=== PATIENT | male | born 1930 | race Caucasian/White ===

== ENCOUNTER 2020-09-29 19:44 | Inpatient (IN) | payer OTHER ==
[~2020-09-29] VITALS: Ht 162.6 cm; Wt 73.5 kg
[2020-09-29 19:45] VITALS: BP 54/31
[2020-09-29 20:12] LABS: ABSOLUTE NEUTROPHILS 2.9 thou/uL (1.4-8.2); BASOPHILS 0.9 % (0.0-2.0); EOSINOPHILS 2.8 % (0.0-3.0); HEMATOCRIT 32.3 % (42.0-52.0); HEMOGLOBIN 10.8 gm/dL (14.0-18.0); LYMPHOCYTES 17.1 % (24.0-44.0); MCH 30.7 pg (26.0-34.0); MCHC 33.5 g/dL (28.0-37.0); MCV 91.7 fL (80.0-100.0); MONOCYTES 8.9 % (1.0-8.0); PLATELET COUNT 250 thou/uL (150-400); POLYS 70.3 % (36.0-66.0); RBC 3.52 mil/uL (4.50-6.00); RDW 16.4 % (10.5-14.5); WBC 4.1 thou/uL (4.0-11.0)
[2020-09-29 20:13] LABS: CALCIUM 8.2 mg/dL (8.5-10.1); CREATININE 1.5 mg/dL (0.7-1.3); POTASSIUM 3.8 mmol/L (3.5-5.1)
[2020-09-29 20:28] LABS: ALBUMIN 2.7 g/dL (3.4-5.0); DIRECT BILIRUBIN 0.1 mg/dL (<0.1-0.2); TOTAL BILIRUBIN 0.5 mg/dL (0.2-1.0); TOTAL PROTEIN 5.8 g/dL (6.4-8.2)
[2020-09-29 21:53] LABS: URINE BILIRUBIN NEGATIVE (Negative); URINE BLOOD NEGATIVE (Negative); URINE CLARITY CLEAR; URINE COLOR YELLOW; URINE GLUCOSE-RANDOM* NEGATIVE (Negative); URINE KETONES NEGATIVE (Negative); URINE LEUKOCYTES-REFLEX NEGATIVE (Negative); URINE NITRITE-REFLEX NEGATIVE (Negative); URINE PROTEIN (DIPSTICK) NEGATIVE (Negative); URINE SPECIFIC GRAVITY 1.025 (1.005-1.035); URINE UROBILINOGEN 0.2 E.U./dl (0.2-1.0)
[2020-09-29 22:52] VITALS: BP 105/76
[2020-09-29 22:53] VITALS: BP 140/75
[2020-09-29 23:36] LABS: APTT 27.9 Seconds (24.5-32.8); INR 1.2; PROTIME 12.3 Seconds (9.3-11.4)
[2020-09-30] VITALS (49 sets, daily range): BP systolic 108–151; BP diastolic 52–101
[2020-09-30 02:04] LABS: HEMATOCRIT 37.4 % (42.0-52.0); HEMOGLOBIN 12.2 gm/dL (14.0-18.0)
[2020-09-30] MEDS ORDERED: ASA81BEC PO (06:23)
[2020-09-30] MEDS ORDERED: HYDROCHLOROTHIA25 M2 PO (06:24)
[2020-09-30] MEDS ORDERED: RABEPRAZOLE SOD20 MG PO (06:24)
[2020-09-30] MEDS ORDERED: VITAMIN C1000 MG PO (06:24)
[2020-09-30] MEDS ORDERED: NAMENDA 10 MG T10 MG PO (06:25)
[2020-09-30] MEDS ORDERED: CELEXA 20 MG TA20 MG PO (06:25)
[2020-09-30] MEDS ORDERED: LEVO-T50 MCG PO (06:25)
[2020-09-30] MEDS ORDERED: CENTRUM SILVER1 EAC7 PO (06:26)
[2020-09-30] MEDS ORDERED: MIRALAX119 GM PO (06:26)
[2020-09-30] MEDS ORDERED: FLOMAX0.4 MG PO (06:27)
[2020-09-30] MEDS ORDERED: AVODART0.5 MG PO (06:30)
[2020-09-30] MEDS ORDERED: PRINIVIL20 M1 PO (06:30)
[2020-09-30] MEDS ORDERED: LIPITOR40 MG PO (06:31)
[2020-09-30] MEDS ORDERED: SEROQUEL 25 MG25 M1 PO (06:32)
[2020-09-30] MEDS ORDERED: LORAZEPAM 0.50.5 MG PO ×2 (06:32→06:33)
--- NOTE | 2020-09-30 07:26 | EKG ---
[address] [place] [address] ELECTROCARDIOGRAM REPORT Name: FINA HERNANDEZ Room #: 246-P ADM IN M.R.#: [id number] Admission: 09/29/20 Attend Phys: Clint Gillette MD Discharge: Date of : [birth year] Report #: [id number] [facility] ED Test Date: 2020-09-29 Test Time: 19:46:26 Pat Name: FINA HERNANDEZ Department: Room: 246 Gender: M Patternmaker: KRISH : 1930 Requested By: Danika Rosario Order Number: [id number] MD: Low Valentin Measurements Intervals [place] Rate: 74 P: 35 UT: 188 QRS: -80 QRSD: 117 T: 57 QT: 404 QTc: 449 Interpretive Statements Sinus rhythm Multiple premature complexes, supraven Left anterior fascicular block Nonspecific intraventricular conduction delay Poor R wave progression No previous ECG available for comparison Electronically Signed On 09-30-2020 7:25:49 ONLINE PROJECT MANAGER by Low Valentin [email or web address] <ELECTRONICALLY SIGNED> By: Low Valentin MD, [facility] 09/30/20724 45 45 Low Valentin MD, [facility] /EPI
[2020-09-30 08:18] LABS: HEMOGLOBIN 11.5 gm/dL (14.0-18.0); MCH 30.6 pg (26.0-34.0); MCHC 33.7 g/dL (28.0-37.0); MCV 90.8 fL (80.0-100.0); RBC 3.75 mil/uL (4.50-6.00); RDW 16.3 % (10.5-14.5); WBC 10.9 thou/uL (4.0-11.0)
[2020-09-30 08:25] LABS: CREATININE 1.4 mg/dL (0.7-1.3); MAGNESIUM 1.8 mg/dL (1.8-2.4); POTASSIUM 3.4 mmol/L (3.5-5.1)
[2020-09-30 12:18] LABS: HEMATOCRIT 31.8 % (42.0-52.0); HEMOGLOBIN 10.8 gm/dL (14.0-18.0)
[2020-10-01] VITALS (17 sets, daily range): BP systolic 108–144; BP diastolic 54–70
[2020-10-01 12:58] LABS: HEMATOCRIT 29.4 % (42.0-52.0); MCH 30.6 pg (26.0-34.0); MCHC 33.9 g/dL (28.0-37.0); MCV 90.2 fL (80.0-100.0); RBC 3.26 mil/uL (4.50-6.00); RDW 16.4 % (10.5-14.5); WBC 6.8 thou/uL (4.0-11.0)
[2020-10-01 13:15] LABS: ALBUMIN 2.3 g/dL (3.4-5.0); CALCIUM 7.8 mg/dL (8.5-10.1); CREATININE 1.1 mg/dL (0.7-1.3); PHOSPHORUS 2.6 mg/dL (2.6-4.7); POTASSIUM 3.1 mmol/L (3.5-5.1)
[2020-10-02] VITALS (17 sets, daily range): BP systolic 127–146; BP diastolic 54–82
[2020-10-02 04:19] LABS: HEMATOCRIT 27.9 % (42.0-52.0); HEMOGLOBIN 9.6 gm/dL (14.0-18.0); MCH 30.9 pg (26.0-34.0); MCHC 34.4 g/dL (28.0-37.0); MCV 89.8 fL (80.0-100.0); RBC 3.11 mil/uL (4.50-6.00); WBC 6.3 thou/uL (4.0-11.0)
[2020-10-02 04:24] LABS: CALCIUM 8.1 mg/dL (8.5-10.1); MAGNESIUM 1.8 mg/dL (1.8-2.4)
[2020-10-02 04:27] LABS: POTASSIUM 2.7 mmol/L (3.5-5.1)
[2020-10-03] VITALS (8 sets, daily range): BP systolic 131–147; BP diastolic 77–95
[2020-10-03 10:59] LABS: CALCIUM 7.8 mg/dL (8.5-10.1); CREATININE 0.9 mg/dL (0.7-1.3); MAGNESIUM 1.7 mg/dL (1.8-2.4)
[2020-10-03 11:00] LABS: HEMATOCRIT 30.8 % (42.0-52.0); HEMOGLOBIN 10.5 gm/dL (14.0-18.0); MCH 30.8 pg (26.0-34.0); MCHC 34.1 g/dL (28.0-37.0); MCV 90.1 fL (80.0-100.0); RBC 3.42 mil/uL (4.50-6.00); RDW 16.7 % (10.5-14.5); WBC 7.1 thou/uL (4.0-11.0)
[2020-10-03 15:00] LABS: HEMATOCRIT 34.6 % (42.0-52.0); HEMOGLOBIN 11.7 gm/dL (14.0-18.0); MCH 30.1 pg (26.0-34.0); MCHC 33.7 g/dL (28.0-37.0); MCV 89.3 fL (80.0-100.0); RBC 3.88 mil/uL (4.50-6.00); RDW 16.4 % (10.5-14.5); WBC 7.5 thou/uL (4.0-11.0)
[2020-10-03 15:08] LABS: CALCIUM 8.3 mg/dL (8.5-10.1); CREATININE 1.1 mg/dL (0.7-1.3); MAGNESIUM 1.7 mg/dL (1.8-2.4); PHOSPHORUS 2.3 mg/dL (2.6-4.7); POTASSIUM 3.5 mmol/L (3.5-5.1)
[2020-10-04] VITALS (8 sets, daily range): BP systolic 129–138; BP diastolic 57–82
[2020-10-04 03:26] LABS: HEMATOCRIT 33.3 % (42.0-52.0); HEMOGLOBIN 11.1 gm/dL (14.0-18.0); MCH 29.9 pg (26.0-34.0); MCHC 33.2 g/dL (28.0-37.0); MCV 89.9 fL (80.0-100.0); RBC 3.7 mil/uL (4.50-6.00); WBC 7.8 thou/uL (4.0-11.0)
[2020-10-04 03:38] LABS: MAGNESIUM 1.5 mg/dL (1.8-2.4); POTASSIUM 3.5 mmol/L (3.5-5.1)
--- NOTE | 2020-10-04 07:27 | EKG ---
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 : 1930 Requested By: Serena Lin Order Number: [id number] MD: Low Valentin Measurements Intervals [place] Rate: 181 P: 0 DE: QRS: 248 QRSD: 108 T: 75 QT: 272 QTc: 473 Interpretive Statements Supraventricular tachycardia Poor R wave progression Nonspecific intraventricular conduction delay Compared to ECG 09/29/2020 19:46:26 Wide-complex tachycardia is now present Electronically Signed On 10-04-2020 7:27:29 STEEL DETAILER by Low Valentin [email or web address] <ELECTRONICALLY SIGNED> By: Low Valentin MD, [facility] 10/04/20726 0448 0448 Low Valentin MD, [facility] /EPI
--- NOTE | 2020-10-04 07:28 | EKG ---
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 : 1930 Requested By: Clint Gillette Order Number: [id number] MD: Kory Bueno Measurements Intervals [place] Rate: 181 P: [place]: QRS: 250 QRSD: 105 T: 73 QT: 289 QTc: 502 Interpretive Statements SVT/possible atrial flutter with rapid V-rate Left anterior fascicular block Abnormal lateral Q waves Anterior infarct, old Compared to ECG 10/03/2020 04:48:50 Supraventricular tachycardia still present Myocardial infarct finding still present Electronically Signed On 10-04-2020 7:28:47 ROCK SINGER by Kory Bueno [email or web address] <ELECTRONICALLY SIGNED> By: Kory Bueno MD, [facility] 10/04/20 0728 0449 0449 Kory Bueno MD, [facility] /EPI
--- NOTE | 2020-10-04 07:29 | EKG ---
[address] [place] [address] ELECTROCARDIOGRAM REPORT Name: FINA HERNANDEZ Room #: 213-P ADM IN M.R.#: [id number] Admission: 09/29/20 Attend Phys: Clint Gillette MD Discharge: Date of : [birth year] Report #: [id number] [facility] Test Date: 2020-10-03 Test Time: 14:31:33 Pat Name: FINA HERNANDEZ Department: Room: 213 P Gender: M Tread Builder: : 1930 Requested By: Clint Gillette Order Number: [id number] MD: Low Valentin Measurements Intervals [place] Rate: 107 P: [place]: QRS: -78 QRSD: 116 T: 87 QT: 382 QTc: 510 Interpretive Statements Atrial fibrillation Left anterior fascicular block Poor R wave progression Nonspecific T abnormalities, lateral leads Compared to ECG 10/03/2020 04:49:36 Heart rate has slowed Electronically Signed On 10-04-2020 7:29:14 BRASS CLEANER by Low Valentin [email or web address] <ELECTRONICALLY SIGNED> By: Low Valentin MD, [facility] 10/04/20 0729 1431 1431 Low Valentin MD, [facility] /EPI
--- NOTE | 2020-10-04 11:44 | HC ---
[facility] [place] [address] CONSULTATION Name: FINA HERNANDEZ Room #: 213-P ADM IN M.R.#: [id number] Admission: 09/29/20 Attend Phys: Clint Gillette MD Discharge: Date of : [birth year] Report #: [id number] THIS REPORT FOR: cc: Irma Alcala MD,Irma Granados,Sathya Fitzgerald MD ~ DATE OF SERVICE: 09/30/2020 WOUND CARE CONSULTATION PERSONAL PHYSICIAN: Dr. Alcala. CHIEF COMPLAINT: Right forearm skin tear. HISTORY OF PRESENT ILLNESS: This is an 89-year-old white male who was [facility] Department [facility] for [facility], this is currently being worked with fluid resuscitation. The patient himself is demented and unable to give any history. Upon admission, the patient was noted to have a skin tear to the right forearm of unknown etiology or time frame. We have been asked to assist in the care at this time. PAST MEDICAL HISTORY: Significant for hypertension, hypothyroidism, gastroesophageal reflux disease, esophagitis, coronary artery disease, dementia and history of COVID-19 infection. CURRENT MEDICATIONS: Multiple, I reviewed the patient's medication list. DRUG ALLERGIES: None. SOCIAL HISTORY: The patient resides in a long-term care facility as well as he is wheelchair bound. FAMILY HISTORY AND REVIEW OF SYSTEMS: Unobtainable because of the patient's mental status. PHYSICAL EXAMINATION: VITAL SIGNS: Temperature 36.9, pulse 88, respirations 18, BP 131/65. GENERAL: This is awake, but not oriented or alert white male who appears chronically ill. HEENT: Normocephalic, atraumatic. Pupils are round. Sclerae white. Mucous membranes are dry. NECK: Without JVD. LUNGS: Diminished breath sounds heard throughout. HEART: Regular. ABDOMEN: Soft, nontender. [facility] [address] [place] [address] CONSULTATION Name: FINA HERNANDEZ Room #: 213-P [facility] IN [facility]#: [id number] Admission: 09/29/20 Attend Phys: Clint Gillette MD Discharge: Date of : [birth year] Report #: [id number] SKIN: Evaluation of the sacral-gluteal region reveals no signs of pressure changes. There is loose stool in patient's ____ and on the bed. EXTREMITIES: The patient moves all extremities with some slight contracture of the upper extremities and right forearm has an approximately 4 cm skin tear, which is superficial, with involvement of the epidermal tissue without erythema, warmth or signs of cellulitis. Distal neurovascular is otherwise intact. Bilateral heels are intact. NEUROLOGIC: Cranial nerves 2-12 grossly intact. Motor and sensory grossly intact. LABORATORY DATA: White count 10.9, hemoglobin 11.5, BUN 23, creatinine 1.4, albumin 2.7. IMPRESSION: 1. Skin tear to the right forearm without signs of infection. 2. Abdominal pain with nausea and vomiting. Workup undergoing. 3. Coronary artery disease. 4. Generalized debility. 5. Moderate protein-calorie malnutrition with albumin 2.7. PLAN: We will start Xeroform, Kerlix tape daily and p.r.n. to the right skin tear forearm. We will watch for any signs and symptoms of infection. Given the fact the patient has fecal incontinence, we will start moisture barrier cream twice daily and p.r.n. Try to keep the area clean and dry. GI is evaluating the patient for abdominal pain, nausea and vomiting. NG tube has been placed. Make sure we maximize patient's nutritional status as best as possible. We will continue all other current medications. We will continue to follow the patient. <ELECTRONICALLY SIGNED> By: Sathya Granados MD 10/04/20 1144 0820 1313 Sathya Granados MD /nt
[2020-10-05 03:38] VITALS: BP 141/72
[2020-10-05 05:14] LABS: HEMATOCRIT 32.5 % (42.0-52.0); HEMOGLOBIN 10.8 gm/dL (14.0-18.0); MCH 30.3 pg (26.0-34.0); MCHC 33.2 g/dL (28.0-37.0); MCV 91.1 fL (80.0-100.0); RBC 3.57 mil/uL (4.50-6.00); RDW 16.1 % (10.5-14.5); WBC 7.6 thou/uL (4.0-11.0)
[2020-10-05 05:21] LABS: CALCIUM 8.2 mg/dL (8.5-10.1); MAGNESIUM 2.1 mg/dL (1.8-2.4); POTASSIUM 3.8 mmol/L (3.5-5.1)
--- NOTE | 2020-10-05 10:10 | 2DMMODE ---
[facility] [place] [address] 2 D/M-MODE ECHOCARDIOGRAM Name: FINA HERNANDEZ Room #: 213-P ADM IN M.R.#: [id number] Admission: 09/29/20 Attend Phys: Clint Gillette MD Discharge: Date of : [birth year] Report #: [id number] THIS REPORT FOR: cc: Irma Alcala MD, Ammar MD Santiago, Patrick MD [facility] ~ APPROVED REPORT Study performed: 10/05/2020 09:14:52 EXAM: Comprehensive 2D, Doppler, and color-flow Echocardiogram Patient Location: Bedside Room #: 213 Status: routine BSA: 1.67 HR: 85 bpm BP: 141/72 mmHg Rhythm: Irregular Other Information Study Quality: Good Indications Atrial Fibrillation Hx: COVID-19 2019 2D Dimensions RVDd: 34.24 mm IVSd: 9.88 (7-11mm) LVOT Diam: 21.09 (18-24mm) LVDd: 45.74 mm PWd: 8.63 (7-11mm) Ascending Ao: 32.86 (22-36mm) LVDs: 38.94 (25-40mm) Aortic Root: 39.57 mm Volumes Left Atrial Volume (Systole) Single Plane 4CH: 58.31 mL Single Plane 2CH: 51.57 mL LA ESV Index: 35.00 mL/m2 Aortic Valve AoV Peak Ujles.: 1.65 m/s AO Peak Gr.: 11.77 mmHg LVOT Max P.19 mmHg LVOT Max V: 0.73 m/s BUDDY Vmax: 1.55 cm2 [facility] [address] [place] [address] 2 D/M-MODE ECHOCARDIOGRAM Name: MARYFINA K Room #: 213-P [facility] IN [facility]#: [id number] Admission: 09/29/20 Attend Phys: Clint Gillette, Discharge: Date of : [birth year] Report #: [id number] Mitral Valve E/A Ratio: 1.3 MV Decel. Time: 105.78 ms MV E Max Jules.: 0.96 m/s MV A Jules.: 0.74 m/s MV PHT: 30.68 ms IVRT: 38.06 ms Pulmonary Valve PV Peak Jules.: 0.99 m/s PV Peak Gr.: 3.92 mmHg Pulmonary Vein P Vein S: 0.78 m/s P Vein D: 0.70 m/s P Vein S/D Ratio: 1.11 Tricuspid Valve TR Peak Jules.: 2.66 m/s RAP Estimate: 5.00 mmHg TR Peak Gr.: 28.39 mmHg PA Pressure: 33.00 mmHg Left Ventricle The left ventricle is normal size. There is normal left ventricular wall thickness. Left ventricular systolic function is moderately decreased. LVEF is 35-40%. Moderate diastolic dysfunction is present. Right Ventricle The right ventricle is normal size. The right ventricular systolic function is normal. Atria Left atrium is mildly dilated. The right atrium size is normal. Aortic Valve Aortic valve is moderately calcified. Mild aortic regurgitation. Mild aortic stenosis; BUDDY by continuity equation is 1.5cm2. Mitral Valve Mitral valve leaflets are mildly thickened. Mild mitral annular calcification. Trace mitral regurgitation. Tricuspid Valve The tricuspid valve is normal in structure. Mild tricuspid [facility] [address] [place] [address] 2 D/M-MODE ECHOCARDIOGRAM Name: MARYFINA Karla Room #: 213-P [facility] IN M.R.#: [id number] Admission: 09/29/20 Attend Phys: Clint Gillette, Discharge: Date of : [birth year] Report #: [id number] regurgitation. Estimated PAP is 30-35mmHg. Pulmonic Valve The pulmonary valve is normal in structure. Trace pulmonic regurgitation. Great Vessels Aortic root is mildly dilated. The ascending aorta is normal in size. IVC is normal in size and collapses >50% with inspiration. Pericardium There is no pericardial effusion. <Conclusion> Normal left ventricular size/wall thickness Mild global hypokinesis ejection fraction 40% Grade 2 diastolic dysfunction Normal right ventricular size/function Mild left atrial enlargement Mild aortic valve calcification Mild aortic valve stenosis, BUDDY estimated -1.5 cm Mild mitral annular calcification Color-flow Doppler study was performed of the aortic/mitral/tricuspid/pulmonary valve Trace mitral valve insufficiency Mild tricuspid valve insufficiency Pulmonary artery systolic pressure estimated 35 mmHg No pericardial effusion <ELECTRONICALLY SIGNED> By: Kory Bueno MD, FACC 10/05/201008 08 08 Kory Bueno MD, FACC /INF
[2020-10-05 12:20] VITALS: BP 130/52
--- NOTE | 2020-10-05 16:06 | PATH ---
[facility] [address] [place] [address] PATHOLOGY RPT PROCEDURE Name: SILVIA HERNANDEZ Room #: 213-P ADM IN M.R.#: [id number] Admission: 09/29/20 Date of : [birth year] Discharge: Report #: [id number] Path Case #: [id number] [facility] Accession Number: [id number] . 01 Material submitted: . sigmoid colon - SIGMOID COLON COLITIS R/O ISCHEMIC COLITIS . 01 Clinical history: . FECAL IMPACTION COLITIS, DIVERTICULOSIS . 02 Diagnosis: Large intestine, sigmoid colon colitis, endoscopic biopsy: - Ischemic colitis. - Negative for dysplasia or malignancy. (IUV/db; 10/05/2020) LBQ 10/05/2020 1521 Local . 02 Electronically signed: . Inocencia Medina MD, Pathologist NPI- [id number] . 01 Gross description: . The specimen is received in formalin, labeled "Silvia Hernandez, biopsy sigmoid colon colitis, R/O ischemic colitis". Received are five segments of pale west soft tissue ranging in size from 0.3 to 0.5 cm in maximum dimensions. The specimen is submitted entirely in cassette A1. (CAA; 10/04/2020) QAC/QAC 10/04/2020 1107 Local . 02 Pathologist provided ICD-10: K52.9 . 02 CPT . 098657 Specimen Comment: A courtesy copy of this report has been sent to [phone] Specimen Comment: Report sent to Performed at: [address], [place], [place] [id number] MD Jarrod Wadsworth MD Phone: [phone] Performed at: [address] [id number] MD Inocencia Medina MD Phone: [phone]
[2020-10-05 17:22] VITALS: BP 154/96
[2020-10-05 19:21] VITALS: BP 144/79
[2020-10-06 04:01] VITALS: BP 136/51
[2020-10-06 07:44] VITALS: BP 142/68
--- NOTE | 2020-10-06 08:07 | P ---
[facility] [place] [address] PROCEDURE REPORT Name: FINA HERNANDEZ Room #: 213-P ADM IN M.R.#: [id number] Admission: 09/29/20 Attend Phys: Clint Gillette MD Discharge: Date of : [birth year] Report #: [id number] THIS REPORT FOR: cc: Irma Alcala MD, Ammar MD [place]hinney, Christian C. MD ~ DATE OF SERVICE: 10/01/2020 PROCEDURE PERFORMED: Flexible sigmoidoscopy with biopsies. HISTORY OF PRESENT ILLNESS: The patient is an 89-year-old male who was admitted with hypotension, mental status changes, blood pressure on admission was 53/31. He has responded to IV fluids. Reason for GI consultation was CAT scan of the abdomen and pelvis on admission showing significantly dilated stomach, possible sigmoid diverticulitis with inflammation. No evidence of perforation or abscess. Moderate distention of the colon particularly in the ascending colon. Findings suggestive of an enterocolitis, partial obstruction at the level of the inflamed sigmoid colon is possible, distended rectum at that time with feces consistent with partial impaction. Rectal exam did not show evidence of fecal impaction; however, the patient has already had enemas and has had several bowel movements. Plan is for flexible sigmoidoscopy. PROCEDURE: The risks and benefits of the procedure were explained to the patient's , those risks including but not limited to bleeding, perforation and the risk of sedation. She understood these risks and gave informed consent. Sedation was given using propofol per anesthesia. Next, a digital rectal exam was initially performed, which was normal. Next, using a standard Olympus colonoscope, the scope was placed in the patient's anus and advanced under direct vision into the transverse colon. There was a moderate amount of formed stool within the transverse colon, most areas were visualized fairly well. There was no evidence of colitis or inflammation or significant dilation of the transverse colon or the descending colon. In the sigmoid colon; however, multiple diverticula were noted. No evidence of obvious diverticulitis; however, colitis was noted through the sigmoid colon was an area of mild narrowing, but again, I was able to get the scope through this area without difficulty. Suspect this reflects an ischemic colitis. There were several areas of ulceration. No evidence of bleeding. Multiple biopsies were obtained. The rectal mucosa was normal. On retroflexion, no abnormalities were noted. The scope was then withdrawn and the procedure terminated. The patient tolerated the procedure well. IMPRESSION: 1. Colitis involving the sigmoid colon, suspect due to ischemic colitis. Biopsies obtained. Mild narrowing, but scope did pass without difficulty. 2. Multiple diverticula in the sigmoid colon, no obvious evidence of [address] [address] PROCEDURE REPORT Name: FINA HERNANDEZ Room #: 213-P [facility] IN M.R.#: [id number] Admission: 09/29/20 Attend Phys: Clint Gillette MD Discharge: Date of : [birth year] Report #: [id number] diverticulitis. 3. Normal appearing transverse and descending colon as well as rectum. RECOMMENDATIONS: 1. Await biopsy results. 2. Continue antibiotics and supportive care. If evidence of ischemic colitis, may consider an ultrasound of the mesenteric Dopplers for further evaluation. We will likely start advancing diet slowly as possible. Thank you for allowing me to participate in his care. <ELECTRONICALLY SIGNED> By: Joshua Guardado MD 10/06/20 0807 1351 1928 Joshua Guardado MD /nt
[2020-10-06 12:00] VITALS: BP 142/54
[2020-10-06 15:55] VITALS: BP 122/54
[2020-10-06 20:02] VITALS: BP 130/68
[2020-10-07 04:50] VITALS: BP 142/69
[2020-10-07 07:30] VITALS: BP 143/65
[2020-10-07 11:50] VITALS: BP 137/58
[2020-10-07] MEDS ORDERED: CARDIZEM CD120 MG PO (12:53)
[2020-10-07] MEDS ORDERED: IPRAT-ALBUT 0.5-3 ML INH (12:53)
[2020-10-07] MEDS ORDERED: FLAGYL500 M1 PO (12:55)
[2020-10-07] MEDS ORDERED: LEVOFLOXACIN750 MG PO (12:55)
== END 2020-10-07 14:40 | DRG 871 ==
LOC: ER 19:44 → ICU 22:36 → EROBS 22:36 → ICU 23:54 → 2N 10-02 07:26
PROVIDERS: Emergency Medicine; Nurse Practitioner Family; Surgery; ADMIT Internal Medicine; ATTEND Internal Medicine
PROC: 0DH67UZ Insertion of Feeding Device into Stomach, Via Natural or Artificial Opening (ICD-10-PCS; 2020-09-30)
PROC: 0DBN8ZX Excision of Sigmoid Colon, Via Natural or Artificial Opening Endoscopic, Diagnostic (ICD-10-PCS; principal; 2020-10-01)
DX: A41.9 Sepsis, unspecified organism (principal); N17.0 Acute kidney failure with tubular necrosis; E43 Unspecified severe protein-calorie malnutrition; U07.1 COVID-19; R65.21 Severe sepsis with septic shock; K57.32 Diverticulitis of large intestine without perforation or abscess without bleeding; K56.609 Unspecified intestinal obstruction, unspecified as to partial versus complete obstruction; K55.9 Vascular disorder of intestine, unspecified; I95.9 Hypotension, unspecified; E86.0 Dehydration; I10 Essential (primary) hypertension; E03.9 Hypothyroidism, unspecified; E78.5 Hyperlipidemia, unspecified; K21.9 Gastro-esophageal reflux disease without esophagitis; I25.10 Atherosclerotic heart disease of native coronary artery without angina pectoris; F32.9 Major depressive disorder, single episode, unspecified; S30.1XXA Contusion of abdominal wall, initial encounter; F41.9 Anxiety disorder, unspecified; S51.811A Laceration without foreign body of right forearm, initial encounter; G30.9 Alzheimer's disease, unspecified; F02.80 Dementia in other diseases classified elsewhere, unspecified severity, without behavioral disturbance, psychotic disturbance, mood disturbance, and anxiety; R15.9 Full incontinence of feces; R62.7 Adult failure to thrive; R13.10 Dysphagia, unspecified; R53.81 Other malaise; N40.0 Benign prostatic hyperplasia without lower urinary tract symptoms; E87.6 Hypokalemia; R63.0 Anorexia; Z68.27 Body mass index [BMI] 27.0-27.9, adult; Z88.2 Allergy status to sulfonamides; Z88.8 Allergy status to other drugs, medicaments and biological substances; Z91.041 Radiographic dye allergy status; Z79.899 Other long term (current) drug therapy; X58.XXXA Exposure to other specified factors, initial encounter; Y93.89 Activity, other specified; Y92.89 Other specified places as the place of occurrence of the external cause; Y99.8 Other external cause status
CPT/HCPCS: 10078; 10081; 62110; 62900; 70005

== ENCOUNTER 2020-11-23 15:17 | Emergency (ER) | payer OTHER ==
[~2020-11-23] VITALS: Ht 167.6 cm; Wt 68.0 kg
[~2020-11-23 15:17] MED LIST: ASA81BEC PO; AVODART0.5 MG PO; CARDIZEM CD120 MG PO; CELEXA 20 MG TA20 MG PO; CENTRUM SILVER1 EAC7 PO; FLAGYL500 M1 PO; FLOMAX0.4 MG PO; HYDROCHLOROTHIA25 M2 PO; IPRAT-ALBUT 0.5-3 ML INH; LEVO-T50 MCG PO; LEVOFLOXACIN750 MG PO; LIPITOR40 MG PO; LORAZEPAM 0.50.5 MG PO; MIRALAX119 GM PO; NAMENDA 10 MG T10 MG PO; PRINIVIL20 M1 PO; RABEPRAZOLE SOD20 MG PO; SEROQUEL 25 MG25 M1 PO; VITAMIN C1000 MG PO
[2020-11-23] MEDS ORDERED: CELEXA 20 MG TA20 MG PO (15:43)
[2020-11-23] MEDS ORDERED: TYLENOL EXTRA500 MG PO (15:43)
[2020-11-23] MEDS ORDERED: NAMENDA 10 MG T10 MG PO (15:44)
[2020-11-23 15:46] LABS: ABSOLUTE NEUTROPHILS 2.7 thou/uL (1.4-8.2); BASOPHILS 1.3 % (0.0-2.0); EOSINOPHILS 2.5 % (0.0-3.0); HEMATOCRIT 40.5 % (42.0-52.0); HEMOGLOBIN 13.4 gm/dL (14.0-18.0); LYMPHOCYTES 17.5 % (24.0-44.0); MCH 30.8 pg (26.0-34.0); MCHC 33.2 g/dL (28.0-37.0); MCV 92.7 fL (80.0-100.0); MONOCYTES 8.7 % (1.0-8.0); PLATELET COUNT 231 thou/uL (150-400); RBC 4.37 mil/uL (4.50-6.00); RDW 16.3 % (10.5-14.5); WBC 3.9 thou/uL (4.0-11.0)
[2020-11-23 15:54] LABS: ANION GAP 11 mmol/L (7-16); BUN 23 mg/dL (7-18); CALCIUM 9.5 mg/dL (8.5-10.1); CHLORIDE 101 mmol/L (98-107); CO2 27 mmol/L (21-32); CREATININE 1.4 mg/dL (0.7-1.3); GLUCOSE 121 mg/dL (74-106); POTASSIUM 3.9 mmol/L (3.5-5.1); SODIUM 139 mmol/L (136-145)
[2020-11-23 16:03] LABS: TROPONIN-I <0.06 ng/mL (<0.06)
[2020-11-23 16:52] LABS: URINE BILIRUBIN NEGATIVE (Negative); URINE BLOOD NEGATIVE (Negative); URINE CLARITY CLEAR; URINE COLOR YELLOW; URINE GLUCOSE-RANDOM* NEGATIVE (Negative); URINE KETONES NEGATIVE (Negative); URINE LEUKOCYTES-REFLEX NEGATIVE (Negative); URINE NITRITE-REFLEX NEGATIVE (Negative); URINE PROTEIN (DIPSTICK) NEGATIVE (Negative); URINE SPECIFIC GRAVITY >= 1.030 (1.005-1.035); URINE UROBILINOGEN 0.2 E.U./dl (0.2-1.0)
[2020-11-23 17:00] LABS: AMP/METHAMP Negative (Negative); BARBITURATES Negative (Negative); BENZODIAZEPINES Negative (Negative); COCAINE Negative (Negative); METHADONE Negative (Negative); OPIATES Negative (Negative); PCP Negative (Negative)
[2020-11-23 18:10] VITALS: BP 135/96
--- NOTE | 2020-11-24 07:40 | EKG ---
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 : 1930 Requested By: Arvind Mcdermott Order Number: [id number] MD: Kory Bueno Measurements Intervals [place] Rate: 58 P: [place]: QRS: -89 QRSD: 136 T: QT: 531 QTc: 522 Interpretive Statements Artifact, suspect Atrial flutter with predominant 4:1 AV block RBBB and LAFB Artifact in lead(s) I,II,aVR,V1,V2,V3,V4,V5,V6 Compared to ECG 10/03/2020 14:31:33 AV block, advanced (high-grade) now present Right bundle-branch block now present Poor R-wave progression no longer present T-wave abnormality no longer present Electronically Signed On 11-24-2020 7:40:29 CDT by Kory Bueno [email or web address] <ELECTRONICALLY SIGNED> By: Kory Bueno MD, [facility] 11/24/20 0740 1609 1609 Kory Bueno MD, [facility] /EPI
== END 2020-11-23 18:25 ==
LOC: ER 15:17
PROVIDERS: Nurse Practitioner
DX: R25.1 Tremor, unspecified (principal); I10 Essential (primary) hypertension; E03.9 Hypothyroidism, unspecified; K21.9 Gastro-esophageal reflux disease without esophagitis; Z79.899 Other long term (current) drug therapy; Z88.2 Allergy status to sulfonamides; Z88.8 Allergy status to other drugs, medicaments and biological substances

== ENCOUNTER 2021-03-20 12:12 | Emergency (ER) | payer OTHER ==
[~2021-03-20] VITALS: Ht 157.5 cm; Wt 59.0 kg
[~2021-03-20 12:12] MED LIST changes: +TYLENOL EXTRA500 MG PO
[2021-03-20 16:20] VITALS: BP 159/79
== END 2021-03-20 16:57 | disposition home or self-care (01) ==
LOC: ER 12:12
DX: S01.81XA Laceration without foreign body of other part of head, initial encounter (principal); I10 Essential (primary) hypertension; E03.9 Hypothyroidism, unspecified; K21.9 Gastro-esophageal reflux disease without esophagitis; Z79.899 Other long term (current) drug therapy; Z88.2 Allergy status to sulfonamides; Z88.8 Allergy status to other drugs, medicaments and biological substances; Z91.041 Radiographic dye allergy status; W06.XXXA Fall from bed, initial encounter; Y93.89 Activity, other specified; Y92.89 Other specified places as the place of occurrence of the external cause; Y99.8 Other external cause status